=== PATIENT | male | born 1970 | race African-American/Black ===

== ENCOUNTER 2017-10-08 21:25 | Emergency (ER) | payer OTHER ==
[2017-10-09] MEDS: HYDROCODONE/APAP (5/325) TAB PO (00:56)
[2017-10-09] MEDS: CEFAZOLIN 1 GM INJ IM (01:03)
== END 2017-10-09 02:03 | disposition home or self-care (01) ==
LOC: FTE 10-09 02:03
DX: S02.92XA Unspecified fracture of facial bones, initial encounter for closed fracture (principal); R51 Headache; Y08.89XA Assault by other specified means, initial encounter
CPT/HCPCS: 70450; 70486; 96372; 99285-25

== ENCOUNTER 2017-11-11 12:13 | Emergency (ER) | payer MEDICAID, OTHER | END 2017-11-11 13:23 | disposition home or self-care (01) | LOC: E/R 12:13 | DX: R05 Cough (principal) | CPT/HCPCS: 99283; Z7502 ==